=== PATIENT | male | born 1990 | race Caucasian/White ===

== ENCOUNTER 2020-10-16 14:12 | Emergency (ER) | payer OTHER ==
[~2020-10-16] VITALS: Ht 172.7 cm; Wt 70.3 kg
[2020-10-16 14:30] VITALS: BP 120/75
--- NOTE | 2020-10-16 14:37 | NUR ---
PT AMBULATED TO BED
--- NOTE | 2020-10-16 15:25 | NUR ---
30 MALE WITH C/O BLOODY STOOL SINCE LAST NIGHT. PT DENIES ANY PAIN, NAUSEA/VOMITING. PT STATES HE HAS TESTED POSITIVE TWICE FOR H. PLYORI AND WAS TREATED, BUT STILL CONTINUES TO TEST POSITIVE FOR H. PLYORI. PT CURRENTLY DENIES ANY PAIN, BUT STATED "AT TIME HE FEELS LIGHTHEADED." MEDHX: H. PYLORI, HEMORRHOIDS ALLERGIES: BENADRYL AND FLAGYL
[2020-10-16 15:44] LABS: BASOPHILS % (AUTO) 0.7 % (0.0-2.0); EOSINOPHILS % (AUTO) 0.6 % (0.0-4.0); HEMATOCRIT 43.9 % (36-52); HEMOGLOBIN 15.1 g/dL (12.0-18.0); LYMPHOCYTES # (AUTO) 1.2 K/uL (2.0-11.5); LYMPHOCYTES % (AUTO) 20.3 % (20.5-51.1); MEAN CORPUSCULAR HEMOGLOBIN 33 pg (27-31); MEAN CORPUSCULAR HGB CONC 34 g/dL (33-37); MEAN CORPUSCULAR VOLUME 94.5 fL (80-94); MONOCYTES # (AUTO) 0.5 K/uL (0.8-1.0); NEUTROPHILS # (AUTO) 4.1 K/uL (1.8-7.7); NEUTROPHILS % (AUTO) 70.4 % (42.2-75.2); PLATELET COUNT (AUTO) 210 K/uL (140-450); RED BLOOD CELL COUNT(AUTO) 4.65 MIL/uL (4.20-6.10); RED CELL DISTRIBUTION WIDTH 13.2 % (11.6-13.7); WHITE BLOOD COUNT (AUTO) 5.8 K/uL (4.8-10.8)
[2020-10-16 16:06] VITALS: BP 120/75
--- NOTE | 2020-10-16 16:07 | NUR ---
Patient discharged with v/s stable. Written and verbal after care instructions given and explained. Patient verbalized understanding. Ambulatory with steady gait. All questions addressed prior to discharge. Advised to follow up with PMD.
== END 2020-10-16 16:07 | disposition home or self-care (01) ==
LOC: MED 14:12
DX: K62.5 Hemorrhage of anus and rectum (principal); Z88.8 Allergy status to other drugs, medicaments and biological substances
CPT/HCPCS: 36415; 85025; 99283